=== PATIENT | female | born 1940 | race African-American/Black ===

== ENCOUNTER 2017-02-09 17:19 | Inpatient (IN) | payer MEDICARE ==
[~2017-02-09] VITALS: Ht 165.1 cm; Wt 81.6 kg
[~2017-02-09 17:19] MED LIST: AMLO10TA80 PO; ASPI-1159 PO; CLOP75TA16 PO; GLYB5TAB7 PO; INSU3INS6 SUBCUT; METF500T4 PO; PREVASTATIN PO; SITA100T11 PO; SOLI5TAB PO; VALS160T2 PO
[2017-02-09] MEDS ORDERED: ONDANSETRON HCL 4MG/2ML VIAL IV STA ×2 (18:20→21:00)
[2017-02-09] MEDS ORDERED: SODIUM CHLORIDE 0.9% 1,000 ML IV ONE (18:20)
[2017-02-09 18:49] LABS: BASOPHILS % 0.3 % (0.0-2.0); EOSINOPHILS % 0.1 % (0.0-5.0); HEMATOCRIT. 31.7 % (36.0-48.0); HEMOGLOBIN. 10.5 g/dL (12.0-16.0); LYMPHOCYTES % 11.2 % (20.0-50.0); MEAN CORPUSCULAR HEMOGLOBIN 28.5 pg (28.0-32.0); MEAN PLATELET VOLUME 8.2 fl (7.4-10.4); MONOCYTES % 8.5 % (2.0-8.0); NEUTROPHILS % 79.9 % (40.0-76.0); PLATELET 366 x1000/uL (130-400); RED BLOOD CELL COUNT 3.69 mill/uL (4.2-5.4); RED CELL DISTRIBUTION WIDTH 15.1 % (11.6-14.6)
[2017-02-09 18:58] LABS: CHLORIDE 91 mEq/L (98-107); INR 1.1; PARTIAL THROMBOPLASTIN TIME 26.3 sec (23.4-31.0); PROTHROMBIN TIME 11.3 sec (9.4-11.6)
[2017-02-09 19:01] LABS: CARBON DIOXIDE 36 mEq/L (21-32)
[2017-02-09] MEDS ORDERED: POTASSIUM CHLORIDE 20MEQ TABLET SR PO ONE (19:15)
[2017-02-09] MEDS ORDERED: ONDANSETRON HCL 4MG/2ML VIAL IV ONE (20:00)
[2017-02-09 20:16] LABS: CLARITY URINE CLOUDY (CLEAR); COLOR URINE YELLOW (YELLOW); GLUCOSE URINE 3+ (NEGATIVE); KETONES URINE TRACE (NEGATIVE); LEUKOCYTE ESTERASE URINE 1+ (NEGATIVE); NITRITE URINE NEGATIVE (NEGATIVE); OCCULT BLOOD URINE 1+ (NEGATIVE); PROTEIN URINE 3+ (NEGATIVE); SPECIFIC GRAVITY URINE 1.026 (1.005-1.030)
[2017-02-09] MEDS ORDERED: ENOXAPARIN 80MG/0.8ML SYR SUBCUT ONE (21:00)
[2017-02-09] MEDS ORDERED: ASPIRIN 325MG EC TABLET PO ONE (21:00)
[2017-02-09] MEDS ORDERED: MORPHINE SULFATE 4 MG/ML CPJ (NOT FOR IM USE) IV STA (21:00)
[2017-02-09] MEDS ORDERED: CEFTRIAXONE 1 G PREMIX 50 ML IV ONE (21:00)
[2017-02-09] MEDS ORDERED: FLUCONAZOLE 100MG TABLET PO ONE (21:15)
[2017-02-09 23:00] VITALS: BP 150/52
[2017-02-10] MEDS ORDERED: DIPHENHYDRAMINE 50MG/ML VIAL IV PRN (00:45)
[2017-02-10] MEDS ORDERED: CLONIDINE 0.1MG TABLET PO PRN (00:45)
[2017-02-10] MEDS ORDERED: DEXTROSE 50% WATER 50ML SYRINGE IV PRN (00:45)
[2017-02-10] MEDS ORDERED: MAGNESIUM/ALUMINUM HYDROXIDE/SIMETHICONE 30ML UDC PO PRN (00:45)
[2017-02-10] MEDS ORDERED: ACETAMINOPHEN 325MG TABLET PO PRN (00:45)
[2017-02-10] MEDS ORDERED: IPRATROPIUM/ALBUTEROL 0.5-3(2.5)MG/3ML NEB INH PRN (00:45)
[2017-02-10] MEDS ORDERED: POTASSIUM CHLORIDE INJ 40 MEQ in DEXT 5% WATER 250 ML IV NR (03:00)
[2017-02-10 04:20] VITALS: BP 118/55
[2017-02-10] MEDS: SODIUM CHLORIDE 0.9% INJ 3ML FLUSH IVF SCH ×3 (06:00→21:43)
[2017-02-10] MEDS: BLOOD SUGAR DIAGNOSTIC STRIP TEST SCH ×4 (07:29→21:04)
[2017-02-10 07:57] VITALS: BP 156/51
[2017-02-10] MEDS: INSULIN LISPRO 100 UNITS/ML SUBCUT SCH ×4 (10:05→21:45)
[2017-02-10 10:11] LABS: TROPONIN I 0.19 ng/mL (0.00-0.04)
[2017-02-10 12:06] VITALS: BP_SYST 118; BP_SYST 156; BP_DIAS 56; BP_DIAS 75
[2017-02-10 16:21] VITALS: BP 157/58
[2017-02-10] MEDS: PANTOPRAZOLE SODIUM 40 MG/VIAL IV SCH (20:59)
[2017-02-10 21:20] VITALS: BP 145/62
[2017-02-10] MEDS: CEFTRIAXONE 1 G PREMIX 50 ML IV SCH (21:43)
[2017-02-10] MEDS: INSULIN DETEMIR UD 100 UNITS/ML SYR SUBCUT SCH (21:51)
[2017-02-11] VITALS: BP 155/56
[2017-02-11 04:00] VITALS: BP 160/64
[2017-02-11] MEDS: SODIUM CHLORIDE 0.9% INJ 3ML FLUSH IVF SCH ×3 (06:06→21:17)
[2017-02-11] MEDS: BLOOD SUGAR DIAGNOSTIC STRIP TEST SCH ×4 (07:20→21:00)
[2017-02-11 07:59] VITALS: BP 156/68
[2017-02-11] MEDS ORDERED: POTASSIUM CHLORIDE 20MEQ/PACKET PO SCH (09:00)
[2017-02-11] MEDS ORDERED: MAGNESIUM 2 G PREMIX 50 ML IV PRN (09:00)
[2017-02-11] MEDS ORDERED: SODIUM CHLORIDE 0.9% 1,000 ML IV SCH (09:00)
[2017-02-11] MEDS: ONDANSETRON HCL 4MG/2ML VIAL IV PRN (09:18)
[2017-02-11] MEDS: PANTOPRAZOLE SODIUM 40 MG/VIAL IV SCH (09:18)
[2017-02-11] MEDS: INSULIN LISPRO 100 UNITS/ML SUBCUT SCH ×4 (09:21→21:00)
[2017-02-11 12:00] VITALS: BP 148/58
[2017-02-11 16:02] VITALS: BP 159/61
[2017-02-11 20:00] VITALS: BP 169/71
[2017-02-11] MEDS: INSULIN DETEMIR UD 100 UNITS/ML SYR SUBCUT SCH (21:15)
[2017-02-11] MEDS: CEFTRIAXONE 1 G PREMIX 50 ML IV SCH (21:16)
[2017-02-12] VITALS: BP 166/69
[2017-02-12 04:00] VITALS: BP 108/51
[2017-02-12] MEDS: SODIUM CHLORIDE 0.9% INJ 3ML FLUSH IVF SCH ×3 (06:11→22:08)
[2017-02-12] MEDS: BLOOD SUGAR DIAGNOSTIC STRIP TEST SCH ×4 (06:11→21:38)
[2017-02-12] MEDS: INSULIN LISPRO 100 UNITS/ML SUBCUT SCH ×4 (07:50→22:12)
[2017-02-12 08:00] VITALS: BP 148/59
[2017-02-12] MEDS: PANTOPRAZOLE SODIUM 40 MG/VIAL IV SCH (09:23)
[2017-02-12 12:00] VITALS: BP 154/61
[2017-02-12 16:00] VITALS: BP 134/55
[2017-02-12 20:00] VITALS: BP 138/52
[2017-02-12] MEDS: CEFTRIAXONE 1 G PREMIX 50 ML IV SCH (21:30)
[2017-02-12] MEDS: INSULIN DETEMIR UD 100 UNITS/ML SYR SUBCUT SCH (22:09)
[2017-02-13] VITALS: BP 140/50
[2017-02-13 04:00] VITALS: BP 141/59
[2017-02-13] MEDS: SODIUM CHLORIDE 0.9% INJ 3ML FLUSH IVF SCH ×3 (06:18→21:18)
[2017-02-13] MEDS: BLOOD SUGAR DIAGNOSTIC STRIP TEST SCH ×4 (06:21→21:26)
[2017-02-13 06:35] LABS: BASOPHILS % 0.3 % (0.0-2.0); EOSINOPHILS % 0.6 % (0.0-5.0); HEMATOCRIT. 26.7 % (36.0-48.0); HEMOGLOBIN. 8.7 g/dL (12.0-16.0); LYMPHOCYTES % 23.2 % (20.0-50.0); MEAN CORPUSCULAR HEMOGLOBIN 28.1 pg (28.0-32.0); MEAN CORPUSCULAR VOLUME 86.2 fL (81.0-99.0); MEAN PLATELET VOLUME 8.7 fl (7.4-10.4); MONOCYTES % 6.1 % (2.0-8.0); NEUTROPHILS % 69.8 % (40.0-76.0); PLATELET 328 x1000/uL (130-400); RED CELL DISTRIBUTION WIDTH 15.2 % (11.6-14.6)
[2017-02-13 06:44] LABS: CARBON DIOXIDE 32 mEq/L (21-32); CHLORIDE 100 mEq/L (98-107)
[2017-02-13 08:00] VITALS: BP 138/56
[2017-02-13] MEDS: PANTOPRAZOLE SODIUM 40 MG/VIAL IV SCH (09:01)
[2017-02-13] MEDS: INSULIN LISPRO 100 UNITS/ML SUBCUT SCH ×4 (09:04→21:32)
[2017-02-13 12:00] VITALS: BP 120/58
[2017-02-13] MEDS ORDERED: LACTULOSE 20G/30ML UDC PO NR (12:15)
[2017-02-13 14:15] LABS: TOTAL IRON BINDING CAPACITY 119 ug/dL (250-450)
[2017-02-13 14:44] LABS: FOLIC ACID (FOLATE) SERUM 10.1 ng/mL (>5.38)
[2017-02-13 16:00] VITALS: BP 134/71
[2017-02-13] MEDS: ASCORBIC ACID 500 MG TABLET PO SCH (18:23)
[2017-02-13] MEDS: DOCUSATE SODIUM SUGAR FREE 100MG/10ML UDC PO SCH (18:23)
[2017-02-13] MEDS: FERROUS SULFATE 325MG TABLET PO SCH (18:24)
[2017-02-13 20:00] VITALS: BP 150/59
[2017-02-13] MEDS ORDERED: LACTULOSE 20G/30ML UDC PO PRN (21:00)
[2017-02-13] MEDS: CEFTRIAXONE 1 G PREMIX 50 ML IV SCH (21:18)
[2017-02-13] MEDS: INSULIN DETEMIR UD 100 UNITS/ML SYR SUBCUT SCH (21:33)
[2017-02-14] VITALS: BP 130/52
[2017-02-14 04:00] VITALS: BP 110/59
[2017-02-14] MEDS: BLOOD SUGAR DIAGNOSTIC STRIP TEST SCH ×4 (06:26→20:40)
[2017-02-14] MEDS: INSULIN LISPRO 100 UNITS/ML SUBCUT SCH ×4 (06:26→20:53)
[2017-02-14] MEDS: SODIUM CHLORIDE 0.9% INJ 3ML FLUSH IVF SCH ×3 (06:28→21:41)
[2017-02-14 08:00] VITALS: BP 171/94
[2017-02-14] MEDS: PANTOPRAZOLE SODIUM 40 MG/VIAL IV SCH (09:18)
[2017-02-14] MEDS: ASCORBIC ACID 500 MG TABLET PO SCH ×2 (09:18→17:09)
[2017-02-14] MEDS: FERROUS SULFATE 325MG TABLET PO SCH ×2 (09:18→17:09)
[2017-02-14] MEDS: DOCUSATE SODIUM SUGAR FREE 100MG/10ML UDC PO SCH ×2 (09:24→17:09)
[2017-02-14 12:00] VITALS: BP 168/50
[2017-02-14 20:00] VITALS: BP 155/61
[2017-02-14] MEDS: CEFTRIAXONE 1 G PREMIX 50 ML IV SCH (21:41)
[2017-02-14] MEDS: INSULIN DETEMIR UD 100 UNITS/ML SYR SUBCUT SCH (22:06)
[2017-02-15] VITALS: BP 145/58
[2017-02-15] MEDS: ONDANSETRON HCL 4MG/2ML VIAL IV PRN (03:57)
[2017-02-15 04:00] VITALS: BP 136/51
[2017-02-15] MEDS: SODIUM CHLORIDE 0.9% INJ 3ML FLUSH IVF SCH ×3 (05:43→22:18)
[2017-02-15] MEDS: INSULIN LISPRO 100 UNITS/ML SUBCUT SCH ×4 (06:32→22:24)
[2017-02-15] MEDS: BLOOD SUGAR DIAGNOSTIC STRIP TEST SCH ×4 (06:32→21:00)
[2017-02-15 08:00] VITALS: BP 146/58
[2017-02-15] MEDS: DOCUSATE SODIUM SUGAR FREE 100MG/10ML UDC PO SCH ×2 (08:15→16:54)
[2017-02-15] MEDS: FERROUS SULFATE 325MG TABLET PO SCH ×2 (10:04→16:55)
[2017-02-15] MEDS: PANTOPRAZOLE SODIUM 40 MG/VIAL IV SCH (10:04)
[2017-02-15] MEDS: ASCORBIC ACID 500 MG TABLET PO SCH ×2 (10:05→16:56)
[2017-02-15 12:00] VITALS: BP 148/54
[2017-02-15 16:00] VITALS: BP 159/60
[2017-02-15] MEDS: CEFTRIAXONE 1 G PREMIX 50 ML IV SCH (22:18)
[2017-02-15] MEDS: INSULIN DETEMIR UD 100 UNITS/ML SYR SUBCUT SCH (22:25)
[2017-02-16] VITALS: BP 140/92
[2017-02-16 04:00] VITALS: BP 153/60
[2017-02-16] MEDS: SODIUM CHLORIDE 0.9% INJ 3ML FLUSH IVF SCH (06:50)
[2017-02-16] MEDS: BLOOD SUGAR DIAGNOSTIC STRIP TEST SCH ×2 (06:50→12:00)
[2017-02-16 07:41] VITALS: BP 149/56
[2017-02-16] MEDS: INSULIN LISPRO 100 UNITS/ML SUBCUT SCH (07:50)
[2017-02-16] MEDS: PANTOPRAZOLE SODIUM 40 MG/VIAL IV SCH (08:29)
[2017-02-16] MEDS: FERROUS SULFATE 325MG TABLET PO SCH (09:23)
[2017-02-16] MEDS: DOCUSATE SODIUM SUGAR FREE 100MG/10ML UDC PO SCH (09:23)
[2017-02-16] MEDS: ASCORBIC ACID 500 MG TABLET PO SCH (09:23)
[2017-02-16 11:28] VITALS: BP 115/58
[2017-02-16] MEDS ORDERED: MAGNESIUM SULFATE 4G IN WATER 100ML PREMIX IV ONE (14:25)
[2017-02-16] MEDS ORDERED: ATROPINE SULFATE 1MG/10ML SYR ONE (14:25)
[2017-02-16] MEDS ORDERED: SODIUM BICARBONATE 7.5% 0.9 MEQ/ML 50ML SYR IV ONE (14:25)
[2017-02-16] MEDS ORDERED: DOPAMINE 400MG IN DEXT 5% 250ML PREMIX IV ONE (14:25)
[2017-02-16] MEDS ORDERED: EPINEPHRINE 0.1MG/ML (1:10,000) 10ML SYR ONE (14:25)
[2017-02-16] MEDS ORDERED: AMIODARONE HCL 50MG/ML 3ML VIAL IV ONE (14:25)
== END 2017-02-16 16:15 | disposition expired | DRG 64 ==
LOC: ER 19:28 → 6WST 20:59 → ENRESERV 21:12
PROVIDERS: ADMIT Internal Medicine; ATTEND Internal Medicine
PROC: 0BH17EZ Insertion of Endotracheal Airway into Trachea, Via Natural or Artificial Opening (ICD-10-PCS; principal; 2017-02-16)
PROC: 5A12012 Performance of Cardiac Output, Single, Manual (ICD-10-PCS; 2017-02-16)
DX: I63.9 Cerebral infarction, unspecified (principal); G93.41 Metabolic encephalopathy; I21.4 Non-ST elevation (NSTEMI) myocardial infarction; E43 Unspecified severe protein-calorie malnutrition; E11.65 Type 2 diabetes mellitus with hyperglycemia; R13.12 Dysphagia, oropharyngeal phase; D64.9 Anemia, unspecified; I11.9 Hypertensive heart disease without heart failure; E86.0 Dehydration; N39.0 Urinary tract infection, site not specified; I46.9 Cardiac arrest, cause unspecified; M48.02 Spinal stenosis, cervical region; R47.01 Aphasia; E61.1 Iron deficiency; K22.4 Dyskinesia of esophagus; R26.9 Unspecified abnormalities of gait and mobility; R47.1 Dysarthria and anarthria; Z79.82 Long term (current) use of aspirin; Z79.84 Long term (current) use of oral hypoglycemic drugs; Z79.4 Long term (current) use of insulin; Z79.899 Other long term (current) drug therapy; I65.22 Occlusion and stenosis of left carotid artery
CPT/HCPCS: 36415; 70551; 71010; 72141; 74220; 80048; 80053; 81001; 82270; 82607; 82728; 82746; 82962; 83540; 83550; 83690; 83735; 84443; 84484; 85025; 85610; 85730; 86850; 86900; 92610; 92950; 93005; 93306; 93880; 93970; 96365; 96372; 96375; 96376; 97110; 97162; 97166; 97530; 99291; C1893; C9113; J0171; J0282; J0461; J0696; J1265; J1650; J1815; J2270; J2405; J3475; J3480; J3490; J7030; J7040; J7060